=== PATIENT | female | born 1965 | race Caucasian/White ===

== ENCOUNTER 2024-08-19 20:30 | Observation (INO) | payer BC ==
--- NOTE | 2024-08-19 21:11 | ERPHSYRPT ---
- History of Present Illness Time Seen by Provider: 08/19/24 21:09 Source: patient Exam Limitations: no limitations Patient Subjective Stated Complaint: pt states that she began to have rt lower back pain this morning Triage Nursing Assessment: pt ambulated into the er; pt is axo x4; c/o back pain; pt states 8/10 pain to rt lower back; pt denies radiating pain; pt states pain has worsen over the day; no deformity or bruising present; good ROM to back; skin PDW; no respiratory distress present; hypertensive Physician History: The patient presents with acute right-sided lower back pain. The patient has acute right-sided lower back pain that began this morning. The pain is described as severe and is exacerbated by sitting, making it difficult for them to sit on the bed. The pain is localized to the right side of the lower back without radiation to the abdomen or groin. There is no history of back issues or recent injury. They have not experienced any numbness, tingling, or weakness in the right leg. No associated abdominal pain or changes in urination, such as burning, difficulty, or blood in the urine. They have no history of kidney stones. For pain relief, they took Aleve prior to the visit. Timing/Duration: today, worse Method of Injury: unknown Quality: sharp, stabbing Back Pain Location: paraspinous muscles Severity of Pain-Max: severe Severity of Pain-Current: severe Modifying Factors: Improves With: other (laying flat) Associated Symptoms: lower back pain, muscle spasms, No fever, No chills, No sweating, No urinary incontinence, No loss of bowel control, No nausea, No vomiting, No problems urinating, No numbness in legs/feet, No weakness, No sensory/motor loss, No tingling in legs/feet Previous symptoms: no prior history Allergies/Adverse Reactions: No Known Drug Allergies Allergy (Unverified 08/19/24 20:34) Hx Tetanus, Diphtheria Vaccination/Date Given: No Hx Influenza Vaccination/Date Given: No Hx Pneumococcal Vaccination/Date Given: No Travel Risk - International Travel Have you traveled outside of the country in past 3 weeks: No - Emerging Infectious Disease Are you exhibiting symptoms associated with any current EIDs: No - Review of Systems All Other Systems: Reviewed and Negative - Past Medical History Pertinent Past Medical History: No - Past Surgical History Past Surgical History: Yes Musculoskeletal: Orthopedic Surgery Female Surgical History: Section Other Surgical History: left shoulder - Social History Smoking Status: Never smoker Exposure to second hand smoke: No Drug Use: none - Social Determinants of Health Will the patient participate in the screening: Yes Do you worry about a steady place to live?: No Do you have any problems with any of the following?: No known problems In the past 12 months,have you had to go without utilities?: No Transportation Issues: No Has anyone in your support network made you feel unsafe?: No Have you or anyone in your house had to go without enough: No - Nursing Vital Signs Nursing Vital Signs: Initial Vital Signs Temperature 97.2 F 08/19/24 20:35 Pulse Rate 74 08/19/24 20:35 Respiratory Rate 20 08/19/24 20:35 Blood Pressure 190/95 08/19/24 20:35 O2 Sat by Pulse Oximetry 99 08/19/24 20:35 Pain Scale Pain Intensity [] 8 Pain Intensity 8 - Physical Exam General Appearance: no apparent distress Respiratory Exam: airway intact, No respiratory distress Gastrointestinal Exam: soft, No tenderness, No distention, No mass, No guarding, No rebound Back Exam: CVA tenderness (right), point tenderness (right paraspinal) Extremity Exam: normal inspection, normal range of motion, No tenderness Neurologic Exam: alert, oriented x 3, cooperative, drafter plumbing II-XII nml as tested, normal mood/affect, nml cerebellar function, nml station & gait Skin Exam: normal color, warm, dry, No rash SpO2 Interpretation: normal SpO2: 99 O2 Delivery: Room Air - Course Nursing assessment & vital signs reviewed: Yes - CT Exams Abdomen/Pelvis CT Interpretation: Tele-radiologist Report, appendicitis Ordered Tests: Active Orders 24 hr Category Date Time Status IV Insertion STAT Care 08/19/24 23:15 Ordered ABDOMEN AND PELVIS W/0 CONTRAS [CT] Stat Exams 08/19/24 21:13 Completed CBC W DIFF Stat Lab 08/19/24 21:41 Completed CMP Stat Lab 08/19/24 21:41 Completed CULTURE,URINE Stat Lab 08/19/24 21:24 Received Folate (Folic Acid) Stat Lab 08/19/24 21:53 Received UA W/RFX UR CULTURE Stat Lab 08/19/24 21:24 Completed Vitamin B12 Stat Lab 08/19/24 21:53 Received Medication Summary Generic Name Dose Route Start Last Admin Trade Name Charline PRN Reason Stop Dose Admin Piperacillin Sod/Tazobactam 100 mls @ 200 mls/hr 08/19/24 23:14 Sod 3.375 gm/ Sodium Chloride IV 08/19/24 23:43 STAT ONE Sodium Chloride 1,000 mls @ 125 mls/hr 08/19/24 23:30 Sodium Chloride 0.9% 1000 Ml IV 09/18/24 23:29 .Q8H YAHAIRA Discontinued Medications Generic Name Dose Route Start Last Admin Trade Name Charline PRN Reason Stop Dose Admin Acetaminophen 975 mg 08/19/24 21:11 08/19/24 21:16 Acetaminophen 325 Mg Tablet PO 08/19/24 21:12 975 mg STAT ONE Administration Acetaminophen Confirm 08/19/24 21:16 Acetaminophen 325 Mg Tablet Administered 08/19/24 21:17 Dose 975 mg .ROUTE .STK-MED ONE Cyclobenzaprine HCl 10 mg 08/19/24 21:11 08/19/24 21:16 Cyclobenzaprine Hcl 10 Mg Tablet PO 08/19/24 21:12 10 mg STAT ONE Administration Cyclobenzaprine HCl Confirm 08/19/24 21:15 Cyclobenzaprine Hcl 10 Mg Tablet Administered 08/19/24 21:16 Dose 10 mg .ROUTE .STK-MED ONE Ketorolac Tromethamine 30 mg 08/19/24 22:51 08/19/24 22:53 Ketorolac Tromethamine 30 Mg/Ml Inj IM 08/19/24 22:52 30 mg STAT ONE Administration Ketorolac Tromethamine Confirm 08/19/24 22:52 Ketorolac Tromethamine 30 Mg/Ml Inj Administered 08/19/24 22:53 Dose 30 mg .ROUTE .STK-MED ONE Nitrofurantoin Macrocrystals 100 mg 08/19/24 21:53 08/19/24 21:59 Nitrofurantoin Macro 100 Mg Capsule PO 08/19/24 21:54 100 mg STAT ONE Administration Nitrofurantoin Macrocrystals Confirm 08/19/24 21:58 Nitrofurantoin Macro 100 Mg Capsule Administered 08/19/24 21:59 Dose 100 mg .ROUTE .STK-MED ONE Tamsulosin HCl 0.4 mg 08/19/24 21:13 08/19/24 21:16 Tamsulosin Hcl 0.4 Mg Cap PO 08/19/24 21:14 0.4 mg STAT ONE Administration Tamsulosin HCl Confirm 08/19/24 21:15 Tamsulosin Hcl 0.4 Mg Cap Administered 08/19/24 21:16 Dose 0.4 mg .ROUTE .STK-MED ONE Lab/Rad Data: Laboratory Result Diagrams 08/19/24 21:41 08/19/24 21:41 Laboratory Results 08/19/24 08/19/24 08/19/24 Range/Units 21:53 21:41 21:41 WBC 9.5 (3.98-10.04) x10^3/uL RBC 4.07 (3.93-5.22) x10^6/uL Hgb 13.5 (11.2-15.7) g/dL Hct 41.2 (34.1-44.9) % MCV 101.2 H (79.4-94.8) fL MCH 33.2 H (25.6-32.2) pg MCHC 32.8 (32.2-35.5) g/dL RDW 13.2 (11.7-14.4) % Plt Count 170 L (182-369) x10^3/uL MPV 10.8 (9.4-12.3) fL Gran % 66.1 (34.0-71.1) % Immature Gran % (Auto) 0.2 (0.001-0.429) % Nucleat RBC Rel Count 0.0 (0.00-0.2) % Eos # (Auto) 0.47 H (0.04-0.36) x10^3/uL Immature Gran # (Auto) 0.02 (0.001-0.031) x10^3u/L Absolute Lymphs (auto) 2.17 (1.18-3.74) x10^3/uL Absolute Monos (auto) 0.53 (0.24-0.86) x10^3/uL Absolute Nucleated RBC 0.00 (0.00-0.012) x10^3u/L Lymphocytes % 22.8 (19.3-51.7) % Monocytes % 5.6 (4.7-12.5) % Eosinophils % 4.9 (0.7-5.8) % Basophils % 0.4 (0.1-1.2) % Absolute Granulocytes 6.28 H (1.56-6.13) x10^3/uL Basophils # 0.04 (0.01-0.08) x10^3/uL Sodium 137 (135-145) mmol/L Potassium 4.2 (3.5-5.1) mmol/L Chloride 101 (98-107) mmol/L Carbon Dioxide 30 (22-30) mmol/L Anion Gap 10.0 (5-15) MEQ/L BUN 25 H (7-17) mg/dL Creatinine 1.04 (0.52-1.04) mg/dL Estimated GFR 61.5 ML/MIN Glucose 92 (74-106) mg/dL Calcium 9.0 (8.4-10.2) mg/dL Total Bilirubin 0.40 (0.2-1.3) mg/dL AST 26 (14-36) U/L ALT 23 (0-35) U/L Alkaline Phosphatase 88 (38-126) U/L Serum Total Protein 7.6 (6.3-8.2) g/dL Albumin 4.4 (3.5-5.0) g/dL Vitamin B12 544 (239-931) pg/mL Folic Acid 7.81 (2.76 - >20) ng/mL Urine Color (Yellow) Urine Appearance (Clear) Urine pH (4.6-8.0) Ur Specific [place] (1.005-1.030) Urine Protein (Negative) Urine Glucose (UA) (Negative) mg/dL Urine Ketones (Negative) Urine Blood (Negative) Urine Nitrite (Negative) Urine Bilirubin (Negative) Urine Urobilinogen (0.2) mg/dL Ur Leukocyte Esterase (Negative) U Hyaline Cast (Auto) (0-2) /LPF Urine Microscopic RBC (0-5) /HPF Urine Microscopic WBC (0-5) /HPF Ur Epithelial Cells (None Seen) /HPF Urine Bacteria (None Seen) /HPF Urine Culture Reflexed (NO) 08/19/24 Range/Units 21:24 WBC (3.98-10.04) x10^3/uL RBC (3.93-5.22) x10^6/uL Hgb (11.2-15.7) g/dL Hct (34.1-44.9) % MCV (79.4-94.8) fL MCH (25.6-32.2) pg MCHC (32.2-35.5) g/dL RDW (11.7-14.4) % Plt Count (182-369) x10^3/uL MPV (9.4-12.3) fL Gran % (34.0-71.1) % Immature Gran % (Auto) (0.001-0.429) % Nucleat RBC Rel Count (0.00-0.2) % Eos # (Auto) (0.04-0.36) x10^3/uL Immature Gran # (Auto) (0.001-0.031) x10^3u/L Absolute Lymphs (auto) (1.18-3.74) x10^3/uL Absolute Monos (auto) (0.24-0.86) x10^3/uL Absolute Nucleated RBC (0.00-0.012) x10^3u/L Lymphocytes % (19.3-51.7) % Monocytes % (4.7-12.5) % Eosinophils % (0.7-5.8) % Basophils % (0.1-1.2) % Absolute Granulocytes (1.56-6.13) x10^3/uL Basophils # (0.01-0.08) x10^3/uL Sodium (135-145) mmol/L Potassium (3.5-5.1) mmol/L Chloride (98-107) mmol/L Carbon Dioxide (22-30) mmol/L Anion Gap (5-15) MEQ/L BUN (7-17) mg/dL Creatinine (0.52-1.04) mg/dL Estimated GFR ML/MIN Glucose (74-106) mg/dL Calcium (8.4-10.2) mg/dL Total Bilirubin (0.2-1.3) mg/dL AST (14-36) U/L ALT (0-35) U/L Alkaline Phosphatase (38-126) U/L Serum Total Protein (6.3-8.2) g/dL Albumin (3.5-5.0) g/dL Vitamin B12 (239-931) pg/mL Folic Acid (2.76 - >20) ng/mL Urine Color Yellow (Yellow) Urine Appearance Cloudy A (Clear) Urine pH 5.0 (4.6-8.0) Ur Specific [place] >=1.030 A (1.005-1.030) Urine Protein Negative (Negative) Urine Glucose (UA) Negative (Negative) mg/dL Urine Ketones Trace A (Negative) Urine Blood Negative (Negative) Urine Nitrite Negative (Negative) Urine Bilirubin Negative (Negative) Urine Urobilinogen 0.2 (0.2) mg/dL Ur Leukocyte Esterase Small A (Negative) U Hyaline Cast (Auto) NONE SEEN (0-2) /LPF Urine Microscopic RBC 3-5 (0-5) /HPF Urine Microscopic WBC 21-50 A (0-5) /HPF Ur Epithelial Cells Moderate A (None Seen) /HPF Urine Bacteria Many A (None Seen) /HPF Urine Culture Reflexed YES (NO) - Progress Progress: unchanged Progress Note: 08/19/24 21:11 Right-sided lower back pain Acute severe right-sided lower back pain with no prior back issues or recent injury. Absence of numbness, tingling, or weakness in the right leg. Pain does not radiate to the abdomen or groin. No urinary symptoms such as dysuria, difficulty, or hematuria. Differential diagnosis includes muscle spasm and nephrolithiasis. No red flag symptoms for back pain. Standing provides some relief. Imaging of the back is not indicated, but a CT scan of the abdomen is warranted to rule out nephrolithiasis. - Order CT scan of the abdomen to rule out nephrolithiasis - Prescribe analgesics for pain management 08/19/24 21:54 UA consistent with UTI, Macrobid prescribed. 08/19/24 23:09 CT abd/pelvis shows mildly dilated appendix at 9.3mm, minimal periappendiceal fat stranding and few tiny reactive lymph nodes, submucosal fat deposition noted within the appendix, possible early/subacute appendicitis. Will reach out to general surgery for recs. 08/19/24 23:[address] Armando Goodwin at [phone] who agrees to consult on patient and remove appendix tomorrow, he recommended Zosyn and asked if we could have the hospitalist admit the patient. 08/19/24 23:20 Dr. Ricardo accepts at 1120. Discussed with : Nino Counseled pt/family regarding: lab results, diagnosis, need for follow-up, rad results Medical Desision Making - Discussion of managment Care discussed with:: specialist Reviewed:: Test results Agreed on:: Treatment plan, place in obs Will see patient: in hospital - Diagnostic Testing Diagnostic test were ordered, analyzed, and reviewed by me: Yes Radiological Interpretation: Interpreted by me, Reviewed by me, Teleradiologist Report - Risk of complications The pt has a mod risk of morbidity or mortality based on: Need for prescription drug management The pt has a high risk of morbidity or mortality based on: Decision regarding hospitilization or escalation of hosp level of care - Departure Departure Disposition: Observation Clinical Impression: UTI (urinary tract infection), Low back pain, Appendicitis Condition: Good Critical Care Time: No Referrals: RAIN AZEVEDO, [employer] TECHNICIAN [Primary Care Provider] - Follow up/PCP as directed Instructions: Urinary tract infections in adults Prescriptions: Nitrofurantoin Macro 100 mg [Macrobid 100MG Capsule] 100 mg PO BID 5 Days #9 cap
[2024-08-19] MEDS ORDERED: Flomax 0.4 MG ONE (21:15)
[2024-08-19] MEDS ORDERED: Cyclobenzaprine 10 MG ONE (21:15)
[2024-08-19] MEDS: TYLENOL 325 MG PO ONE (21:16)
[2024-08-19] MEDS: Flomax 0.4 MG PO ONE (21:16)
[2024-08-19] MEDS ORDERED: TYLENOL 325 MG ONE (21:16)
[2024-08-19] MEDS: Cyclobenzaprine 10 MG PO ONE (21:16)
[2024-08-19 21:42] LABS: Absolute Neutrophil Ct (ANC) 6.28 x10^3/uL (1.56-6.13); BASOPHIL % 0.4 % (0.1-1.2); Basophil (Absolute #) 0.04 x10^3/uL (0.01-0.08); Eosinophil % 4.9 % (0.7-5.8); Eosinophil (Absolute #) 0.47 x10^3/uL (0.04-0.36); Hematocrit 41.2 % (34.1-44.9); Hemoglobin 13.5 g/dL (11.2-15.7); IMMATURE GRAN # 0.02 x10^3u/L (0.001-0.031); IMMATURE GRAN % 0.2 % (0.001-0.429); Lymphocyte (Absolute #) 2.17 x10^3/uL (1.18-3.74); Lymphocytes % 22.8 % (19.3-51.7); Mean Cell Volume 101.2 fL (79.4-94.8); Mean Corpuscular Hemoglobin 33.2 pg (25.6-32.2); Mean Corpuscular Hgb Concent. 32.8 g/dL (32.2-35.5); Mean Platelet Volume 10.8 fL (9.4-12.3); Monocyte (Absolute #) 0.53 x10^3/uL (0.24-0.86); Monocytes % 5.6 % (4.7-12.5); Neutrophil % 66.1 % (34.0-71.1); Platelet Count 170 x10^3/uL (182-369); Red Blood Count 4.07 x10^6/uL (3.93-5.22); Red Cell Distribution Width 13.2 % (11.7-14.4); White Blood Count 9.5 x10^3/uL (3.98-10.04)
[2024-08-19 21:50] LABS: Appearance Cloudy (Clear); Bacteria Many /HPF (None Seen); Bilirubin Negative (Negative); Blood Negative (Negative); Epithelial Cells Moderate /HPF (None Seen); Glucose, Urine Negative (Negative); Hyaline Casts NONE SEEN /LPF (0-2); Ketones Trace (Negative); Leukocyte Esterase Small (Negative); Nitrite Negative (Negative); Protein,Urine Dip Negative (Negative); Specific Gravity >=1.030 (1.005-1.030); Urobilinogen 0.2 mg/dL (0.2); WBC 21-50 /HPF (0-5)
[2024-08-19 21:58] LABS: ALBUMIN 4.4 g/dL (3.5-5.0); BILIRUBIN,TOTAL 0.4 mg/dL (0.2-1.3); Creatinine 1 1.04 mg/dL (0.52-1.04); EST GLOMERULAR FILTRATION RATE 61.5 ML/MIN; Potassium 4.2 mmol/L (3.5-5.1); Total Protein 7.6 g/dL (6.3-8.2)
[2024-08-19] MEDS ORDERED: Macrobid 100MG Capsule ONE (21:58)
[2024-08-19] MEDS: Macrobid 100MG Capsule PO ONE (21:59)
[2024-08-19] MEDS ORDERED: TORAdol 30 mg Injection ONE (22:52)
[2024-08-19] MEDS: TORAdol 30 mg Injection IM ONE (22:53)
--- NOTE | 2024-08-19 23:07 | XRAY ---
CLINICAL HISTORY: right flank pain COMPARISON: None. TECHNIQUE: Contiguous axial images were obtained from the level of the diaphragm to the pubic symphysis without intravenous or oral contrast. Coronal and sagittal reconstructions were likewise performed and indicated to increase the sensitivity for detecting clinically relevant pathology. CT scan was performed according to ALARA (as low as reasonably achievable). FINDINGS: Tiny calcified granuloma is noted in the left lower lobe. Rest of the lung parenchyma appear normal. Evaluation of the abdominal and pelvic visceral organs is limited without intravenous contrast. The unenhanced liver is grossly unremarkable. The gallbladder is present. The unenhanced spleen is grossly unremarkable. The unenhanced pancreas is grossly unremarkable. The adrenal glands are grossly unremarkable. The kidneys are normal in size. There is no hydronephrosis. No perinephric stranding is seen. The ureters are normal in caliber. No evidence of focal or diffuse bowel wall thickening or evidence of bowel obstruction is seen. Appendix appears mildly dilated measuring 9.3 mm in diameter. Minimal periappendiceal fat stranding is seen with few tiny reactive lymph nodes. Submucosal fat deposition is noted within the appendix. No pneumoperitoneum/ mehreen-appendiceal collection /wall thickening /perforation is noted. Po The urinary bladder is collapsed. No adenopathy or fluid collections are seen. Pelvic viscera are grossly unremarkable. The aorta is normal in caliber. No aggressive appearing osseous lesions are identified. IMPRESSION: 1. Appendix appears mildly dilated measuring 9.3 mm in diameter. Minimal periappendiceal fat stranding is seen with few tiny reactive lymph nodes. Submucosal fat deposition is noted within the appendix. Possibility of early or subacute appendicitis to be considered. 2. No pneumoperitoneum/ mehreen-appendiceal collection /wall thickening /perforation is noted. 3. No evidence of radiodense renal/ureteric calculi detected. Electronically Signed by: Juan Fair MD. (08/19/2024 23:01:31 EST)
[2024-08-19 23:13] LABS: Folate (Folic Acid) 7.81 ng/mL (2.76 - >20)
[2024-08-19] MEDS ORDERED: PIPERACILLIN/TAZOBACTAM IV ONE ×2 (23:18→23:19)
[2024-08-19] MEDS ORDERED: Sodium Chloride 100ML MINI-BAG PLUS 100 ML IV ONE (23:20)
[2024-08-19] MEDS: MORPHINE SULFATE 2 MG INJ IV ONE (23:24)
[2024-08-19] MEDS ORDERED: MORPHINE SULFATE 2 MG INJ ONE (23:24)
[2024-08-19] MEDS: PIPERACILLIN/TAZOBACTAM 3.375 GM in Sodium Chloride 100ML MINI-BAG PLUS 100 ML IV ONE (23:25)
[2024-08-19] MEDS: Sodium Chloride 0.9% 1000 ML 1,000 ML IV SCH (23:25)
--- NOTE | 2024-08-19 23:42 | PCM.HP ---
History of Present Illness - Chief Complaint Chief Complaint: back pain Date: 08/19/24 History of Present Illness: is a 59 year old female with no significant past medical history who presents with sudden onset today of right lower back pain, progressively wor sening throughout the day. Aching in general, with intermittent sharp squeezing pains lasting a few seconds. Relieved by standing, worsened by lying down. Denies associated fevers, nausea, diarrhea, or dysuria. Denies any abdominal pain. - Review of Systems All Other Systems: Reviewed and Negative Medications & Allergies Allergies/Adverse Reactions: Allergies Allergy/AdvReac Type Severity Reaction Status Date / Time No Known Drug Allergies Allergy Unverified 08/19/24 20:34 - Past Medical History Past Medical History: No - Past Surgical History Past Surgical History: Yes Musculskeletal Surgical Hx: Orthopedic Surgery Female Surgical History: Section Other Surgical History: left shoulder Significant Family History: cancer (father with colon cancer) - Social History Smoking Status: Never smoker Exposure to second hand smoke: No Alcohol: Rarely Drug Use: none - Social Determinants of Health Will the patient participate in the screening: Yes Do you worry about a steady place to live?: No Do you have any problems with any of the following?: No known problems In the past 12 months,have you had to go without utilities?: No Have you or anyone in your house had to go without enough: No Transportation Issues: No Has anyone in your support network made you feel unsafe?: No - Physical Exam Vital Signs: Vital Signs - 24 hr Temp Pulse Resp BP BP Pulse Ox 08/19/24 23:21 99 08/19/24 23:00 66 150/80 100 08/19/24 22:30 65 131/79 100 08/19/24 22:00 72 18 142/78 100 08/19/24 21:55 147/69 08/19/24 21:30 77 120/85 98 08/19/24 21:01 74 133/84 98 08/19/24 20:37 78 190/95 99 08/19/24 20:35 97.2 F 74 20 190/95 99 General Appearance: no apparent distress Neurologic Exam: alert, oriented x 3, cooperative, No motor deficits, No sensory deficit Eye Exam: eyes nml inspection, No scleral icterus Ears, Nose, Throat Exam: normal ENT inspection, moist mucous membranes Neck Exam: non-tender, supple Respiratory Exam: normal breath sounds, lungs clear, No respiratory distress Cardiovascular Exam: regular rate/rhythm, No murmur, No edema Gastrointestinal/Abdomen Exam: soft, normal bowel sounds, No tenderness, No distention Back Exam: normal range of motion, CVA tenderness Extremity Exam: normal range of motion, No joint swelling Skin Exam: normal color, dry, No rash Results - Labs Lab/Micro Results: Lab Results-Last 24 Hours 08/19/24 08/19/24 08/19/24 Range/Units 21:24 21:41 21:41 WBC 9.5 (3.98-10.04) x10^3/uL RBC 4.07 (3.93-5.22) x10^6/uL Hgb 13.5 (11.2-15.7) g/dL Hct 41.2 (34.1-44.9) % MCV 101.2 H (79.4-94.8) fL MCH 33.2 H (25.6-32.2) pg MCHC 32.8 (32.2-35.5) g/dL RDW 13.2 (11.7-14.4) % Plt Count 170 L (182-369) x10^3/uL MPV 10.8 (9.4-12.3) fL Gran % 66.1 (34.0-71.1) % Immature Gran % (Auto) 0.2 (0.001-0.429) % Nucleat RBC Rel Count 0.0 (0.00-0.2) % Eos # (Auto) 0.47 H (0.04-0.36) x10^3/uL Immature Gran # (Auto) 0.02 (0.001-0.031) x10^3u/L Absolute Lymphs (auto) 2.17 (1.18-3.74) x10^3/uL Absolute Monos (auto) 0.53 (0.24-0.86) x10^3/uL Absolute Nucleated RBC 0.00 (0.00-0.012) x10^3u/L Lymphocytes % 22.8 (19.3-51.7) % Monocytes % 5.6 (4.7-12.5) % Eosinophils % 4.9 (0.7-5.8) % Basophils % 0.4 (0.1-1.2) % Absolute Granulocytes 6.28 H (1.56-6.13) x10^3/uL Basophils # 0.04 (0.01-0.08) x10^3/uL Sodium 137 (135-145) mmol/L Potassium 4.2 (3.5-5.1) mmol/L Chloride 101 (98-107) mmol/L Carbon Dioxide 30 (22-30) mmol/L Anion Gap 10.0 (5-15) MEQ/L BUN 25 H (7-17) mg/dL Creatinine 1.04 (0.52-1.04) mg/dL Estimated GFR 61.5 ML/MIN Glucose 92 (74-106) mg/dL Calcium 9.0 (8.4-10.2) mg/dL Total Bilirubin 0.40 (0.2-1.3) mg/dL AST 26 (14-36) U/L ALT 23 (0-35) U/L Alkaline Phosphatase 88 (38-126) U/L Serum Total Protein 7.6 (6.3-8.2) g/dL Albumin 4.4 (3.5-5.0) g/dL Vitamin B12 (239-931) pg/mL Folic Acid (2.76 - >20) ng/mL Urine Color Yellow (Yellow) Urine Appearance Cloudy A (Clear) Urine pH 5.0 (4.6-8.0) Ur Specific [place] >=1.030 A (1.005-1.030) Urine Protein Negative (Negative) Urine Glucose (UA) Negative (Negative) mg/dL Urine Ketones Trace A (Negative) Urine Blood Negative (Negative) Urine Nitrite Negative (Negative) Urine Bilirubin Negative (Negative) Urine Urobilinogen 0.2 (0.2) mg/dL Ur Leukocyte Esterase Small A (Negative) U Hyaline Cast (Auto) NONE SEEN (0-2) /LPF Urine Microscopic RBC 3-5 (0-5) /HPF Urine Microscopic WBC 21-50 A (0-5) /HPF Ur Epithelial Cells Moderate A (None Seen) /HPF Urine Bacteria Many A (None Seen) /HPF Urine Culture Reflexed YES (NO) 08/19/24 Range/Units 21:53 WBC (3.98-10.04) x10^3/uL RBC (3.93-5.22) x10^6/uL Hgb (11.2-15.7) g/dL Hct (34.1-44.9) % MCV (79.4-94.8) fL MCH (25.6-32.2) pg MCHC (32.2-35.5) g/dL RDW (11.7-14.4) % Plt Count (182-369) x10^3/uL MPV (9.4-12.3) fL Gran % (34.0-71.1) % Immature Gran % (Auto) (0.001-0.429) % Nucleat RBC Rel Count (0.00-0.2) % Eos # (Auto) (0.04-0.36) x10^3/uL Immature Gran # (Auto) (0.001-0.031) x10^3u/L Absolute Lymphs (auto) (1.18-3.74) x10^3/uL Absolute Monos (auto) (0.24-0.86) x10^3/uL Absolute Nucleated RBC (0.00-0.012) x10^3u/L Lymphocytes % (19.3-51.7) % Monocytes % (4.7-12.5) % Eosinophils % (0.7-5.8) % Basophils % (0.1-1.2) % Absolute Granulocytes (1.56-6.13) x10^3/uL Basophils # (0.01-0.08) x10^3/uL Sodium (135-145) mmol/L Potassium (3.5-5.1) mmol/L Chloride (98-107) mmol/L Carbon Dioxide (22-30) mmol/L Anion Gap (5-15) MEQ/L BUN (7-17) mg/dL Creatinine (0.52-1.04) mg/dL Estimated GFR ML/MIN Glucose (74-106) mg/dL Calcium (8.4-10.2) mg/dL Total Bilirubin (0.2-1.3) mg/dL AST (14-36) U/L ALT (0-35) U/L Alkaline Phosphatase (38-126) U/L Serum Total Protein (6.3-8.2) g/dL Albumin (3.5-5.0) g/dL Vitamin B12 544 (239-931) pg/mL Folic Acid 7.81 (2.76 - >20) ng/mL Urine Color (Yellow) Urine Appearance (Clear) Urine pH (4.6-8.0) Ur Specific [place] (1.005-1.030) Urine Protein (Negative) Urine Glucose (UA) (Negative) mg/dL Urine Ketones (Negative) Urine Blood (Negative) Urine Nitrite (Negative) Urine Bilirubin (Negative) Urine Urobilinogen (0.2) mg/dL Ur Leukocyte Esterase (Negative) U Hyaline Cast (Auto) (0-2) /LPF Urine Microscopic RBC (0-5) /HPF Urine Microscopic WBC (0-5) /HPF Ur Epithelial Cells (None Seen) /HPF Urine Bacteria (None Seen) /HPF Urine Culture Reflexed (NO) - Radiology Impressions Radiology Exams & Impressions: Radiology Procedures Category Date Time Status ABDOMEN AND PELVIS W/0 CONTRAS [CT] Stat Exams 08/19/24 21:[address] Abd/pelvis - mildly dilated appendix with minimal fat stranding, tiny reactive lymph nodes, c/w early or subacute appendicits. Assessment/Plan (1) Appendicitis Current Visit: Yes Status: Acute Qualifiers: Appendicitis type: acute appendicitis Appendicitis gangrene presence: without gangrene Appendicitis perforation presence: without perforation Appendicitis abscess presence: without abscess Assessment & Plan: 59 y/o F with no significant past medical history who presents with back pain and found to have appendicitis. ## Appendicitis - somewhat atypical vs early presentation, presenting with back pain. However, has concomitant signs of early inflammation in her appendix, which would be consistent. Dr. Goodwin already consulted by ED, agrees with appendicitis diagnosis. - place in observation - NPO - start Zosyn - NS at 125 ml/hr - PRN Morphine, Zofran - Dr. Goodwin plans to take to OR tomorrow for appendectomy ## Pyuria - patient has pyuria on UA but no dysuria. Appendicitis can give pyuria on UA due to inflammatory cells around the appendix infiltrating the right ureter as it passes adjacent, giving a "false positive" dirty UA, as opposed to true acute cystitis. In either case, will be covered adequately by intra-abdominal antibiotics for appendicitis. - no need for specific UTI antibiotics Code status: Full code Prophylaxis: low risk (Leana score 2); encourage ambulation Diet: NPO Dispo: Place in observation; expect will be able to discharge to home after surgery Code(s): K37 - UNSPECIFIED APPENDICITIS Telemedicine Encounter - Telemedicine Encounter Telemedicine Encounter: "The entirety of this encounter was performed via Telemedicine" This visit was performed using real-time audio and video connection between my location and thepatients locationwith the assistance of a surrogateat the patients location. Written or verbal consent was obtained from the patient/guardian to perform this visit [facility] technology. Any patient questions regarding the telemedicine interaction were answered.
--- NOTE | 2024-08-20 05:08 | PCM.NOTE ---
Date and Time: 08/20/24 0503 Subjective Assessment: is a 59 year old female with no significant past medical history who presented to ED08/19/24 with sudden onset today of right lower back pain, progressively worsening throughout the day. Aching in general, with intermittent sharp squeezing pains lasting a few seconds. Relieved by standing, worsened by lying down. Denies associated fevers, nausea, diarrhea, or dysuria. Denies any abdominal pain. CT Abd/pelvis - mildly dilated appendix with minimal fat stranding, tiny reactive lymph nodes, c/w early or subacute appendicitis. Patient admitted with acute appendicitis and pyuria. Surgery consulted plan for intervention today. Objective Data Vital Signs: Vital Signs - 24 hr Temp Pulse Resp BP BP Pulse Ox 08/20/24 04:00 97.0 F 79 18 129/72 98 08/20/24 00:21 97.2 F 74 20 143/85 98 08/19/24 23:21 99 08/19/24 23:00 66 150/80 100 08/19/24 22:30 65 131/79 100 08/19/24 22:00 72 18 142/78 100 08/19/24 21:55 147/69 08/19/24 21:30 77 120/85 98 08/19/24 21:01 74 133/84 98 08/19/24 20:37 78 190/95 99 08/19/24 20:35 97.2 F 74 20 190/95 99 Pain Assessment - Last Documented Pain Intensity [Right Lower 8 Back] Pain Intensity 0 Pain Scale Used 0-10 Pain Scale Intake and Output: Intake & Output 08/17/24 08/18/24 08/19/24 08/20/24 11:59 11:59 11:59 11:59 Intake Total 541 Balance 541 Weight 88.7 kg Lab Results: Lab Results-Last 24 Hours 08/19/24 08/19/24 08/19/24 Range/Units 21:24 21:41 21:41 WBC 9.5 (3.98-10.04) x10^3/uL RBC 4.07 (3.93-5.22) x10^6/uL Hgb 13.5 (11.2-15.7) g/dL Hct 41.2 (34.1-44.9) % MCV 101.2 H (79.4-94.8) fL MCH 33.2 H (25.6-32.2) pg MCHC 32.8 (32.2-35.5) g/dL RDW 13.2 (11.7-14.4) % Plt Count 170 L (182-369) x10^3/uL MPV 10.8 (9.4-12.3) fL Gran % 66.1 (34.0-71.1) % Immature Gran % (Auto) 0.2 (0.001-0.429) % Nucleat RBC Rel Count 0.0 (0.00-0.2) % Eos # (Auto) 0.47 H (0.04-0.36) x10^3/uL Immature Gran # (Auto) 0.02 (0.001-0.031) x10^3u/L Absolute Lymphs (auto) 2.17 (1.18-3.74) x10^3/uL Absolute Monos (auto) 0.53 (0.24-0.86) x10^3/uL Absolute Nucleated RBC 0.00 (0.00-0.012) x10^3u/L Lymphocytes % 22.8 (19.3-51.7) % Monocytes % 5.6 (4.7-12.5) % Eosinophils % 4.9 (0.7-5.8) % Basophils % 0.4 (0.1-1.2) % Absolute Granulocytes 6.28 H (1.56-6.13) x10^3/uL Basophils # 0.04 (0.01-0.08) x10^3/uL Sodium 137 (135-145) mmol/L Potassium 4.2 (3.5-5.1) mmol/L Chloride 101 (98-107) mmol/L Carbon Dioxide 30 (22-30) mmol/L Anion Gap 10.0 (5-15) MEQ/L BUN 25 H (7-17) mg/dL Creatinine 1.04 (0.52-1.04) mg/dL Estimated GFR 61.5 ML/MIN Glucose 92 (74-106) mg/dL Calcium 9.0 (8.4-10.2) mg/dL Total Bilirubin 0.40 (0.2-1.3) mg/dL AST 26 (14-36) U/L ALT 23 (0-35) U/L Alkaline Phosphatase 88 (38-126) U/L Serum Total Protein 7.6 (6.3-8.2) g/dL Albumin 4.4 (3.5-5.0) g/dL Vitamin B12 (239-931) pg/mL Folic Acid (2.76 - >20) ng/mL Urine Color Yellow (Yellow) Urine Appearance Cloudy A (Clear) Urine pH 5.0 (4.6-8.0) Ur Specific [place] >=1.030 A (1.005-1.030) Urine Protein Negative (Negative) Urine Glucose (UA) Negative (Negative) mg/dL Urine Ketones Trace A (Negative) Urine Blood Negative (Negative) Urine Nitrite Negative (Negative) Urine Bilirubin Negative (Negative) Urine Urobilinogen 0.2 (0.2) mg/dL Ur Leukocyte Esterase Small A (Negative) U Hyaline Cast (Auto) NONE SEEN (0-2) /LPF Urine Microscopic RBC 3-5 (0-5) /HPF Urine Microscopic WBC 21-50 A (0-5) /HPF Ur Epithelial Cells Moderate A (None Seen) /HPF Urine Bacteria Many A (None Seen) /HPF Urine Culture Reflexed YES (NO) 08/19/24 Range/Units 21:53 WBC (3.98-10.04) x10^3/uL RBC (3.93-5.22) x10^6/uL Hgb (11.2-15.7) g/dL Hct (34.1-44.9) % MCV (79.4-94.8) fL MCH (25.6-32.2) pg MCHC (32.2-35.5) g/dL RDW (11.7-14.4) % Plt Count (182-369) x10^3/uL MPV (9.4-12.3) fL Gran % (34.0-71.1) % Immature Gran % (Auto) (0.001-0.429) % Nucleat RBC Rel Count (0.00-0.2) % Eos # (Auto) (0.04-0.36) x10^3/uL Immature Gran # (Auto) (0.001-0.031) x10^3u/L Absolute Lymphs (auto) (1.18-3.74) x10^3/uL Absolute Monos (auto) (0.24-0.86) x10^3/uL Absolute Nucleated RBC (0.00-0.012) x10^3u/L Lymphocytes % (19.3-51.7) % Monocytes % (4.7-12.5) % Eosinophils % (0.7-5.8) % Basophils % (0.1-1.2) % Absolute Granulocytes (1.56-6.13) x10^3/uL Basophils # (0.01-0.08) x10^3/uL Sodium (135-145) mmol/L Potassium (3.5-5.1) mmol/L Chloride (98-107) mmol/L Carbon Dioxide (22-30) mmol/L Anion Gap (5-15) MEQ/L BUN (7-17) mg/dL Creatinine (0.52-1.04) mg/dL Estimated GFR ML/MIN Glucose (74-106) mg/dL Calcium (8.4-10.2) mg/dL Total Bilirubin (0.2-1.3) mg/dL AST (14-36) U/L ALT (0-35) U/L Alkaline Phosphatase (38-126) U/L Serum Total Protein (6.3-8.2) g/dL Albumin (3.5-5.0) g/dL Vitamin B12 544 (239-931) pg/mL Folic Acid 7.81 (2.76 - >20) ng/mL Urine Color (Yellow) Urine Appearance (Clear) Urine pH (4.6-8.0) Ur Specific [place] (1.005-1.030) Urine Protein (Negative) Urine Glucose (UA) (Negative) mg/dL Urine Ketones (Negative) Urine Blood (Negative) Urine Nitrite (Negative) Urine Bilirubin (Negative) Urine Urobilinogen (0.2) mg/dL Ur Leukocyte Esterase (Negative) U Hyaline Cast (Auto) (0-2) /LPF Urine Microscopic RBC (0-5) /HPF Urine Microscopic WBC (0-5) /HPF Ur Epithelial Cells (None Seen) /HPF Urine Bacteria (None Seen) /HPF Urine Culture Reflexed (NO) Radiology Exams: Radiology Procedures Category Date Time Status ABDOMEN AND PELVIS W/0 CONTRAS [CT] Stat Exams 08/19/24 21:13 Completed Assessment/Plan (1) Appendicitis Current Visit: Yes Status: Acute Qualifiers: Appendicitis type: acute appendicitis Appendicitis gangrene presence: without gangrene Appendicitis perforation presence: without perforation Appendicitis abscess presence: without abscess Assessment & Plan: -IVF -Zosyn -Pain control -Surgery consulted, plans for intervention today -CBC reviewed Code(s): K37 - UNSPECIFIED APPENDICITIS (2) Low back pain Current Visit: Yes Status: Acute Assessment & Plan: -? secondary to UTI vs appendicitis -pain control -zosyn -appendectomy today Code(s): M54.50 - LOW BACK PAIN, UNSPECIFIED (3) UTI (urinary tract infection) Current Visit: Yes Status: Acute Assessment & Plan: -UA with pyuria - started on Zosyn- follow culture VTE :SCD Diet: NPO Disp: ?after surgery Code(s): N39.0 - URINARY TRACT INFECTION, SITE NOT SPECIFIED
[2024-08-20 05:37] LABS: Absolute Neutrophil Ct (ANC) 3.28 x10^3/uL (1.56-6.13); BASOPHIL % 0.2 % (0.1-1.2); Basophil (Absolute #) 0.01 x10^3/uL (0.01-0.08); Eosinophil % 5.3 % (0.7-5.8); Eosinophil (Absolute #) 0.32 x10^3/uL (0.04-0.36); Hematocrit 37.7 % (34.1-44.9); Hemoglobin 12.6 g/dL (11.2-15.7); IMMATURE GRAN # 0.02 x10^3u/L (0.001-0.031); IMMATURE GRAN % 0.3 % (0.001-0.429); Lymphocyte (Absolute #) 2.04 x10^3/uL (1.18-3.74); Mean Cell Volume 100.8 fL (79.4-94.8); Mean Corpuscular Hemoglobin 33.7 pg (25.6-32.2); Mean Corpuscular Hgb Concent. 33.4 g/dL (32.2-35.5); Mean Platelet Volume 10.7 fL (9.4-12.3); Monocyte (Absolute #) 0.33 x10^3/uL (0.24-0.86); Monocytes % 5.5 % (4.7-12.5); Neutrophil % 54.7 % (34.0-71.1); Platelet Count 122 x10^3/uL (182-369); Red Blood Count 3.74 x10^6/uL (3.93-5.22); Red Cell Distribution Width 13.1 % (11.7-14.4)
[2024-08-20] MEDS ORDERED: Sodium Chloride 100ML MINI-BAG PLUS 100 ML IV ONE (06:05)
[2024-08-20] MEDS ORDERED: PIPERACILLIN/TAZOBACTAM IV ONE (06:05)
[2024-08-20 06:07] LABS: ALBUMIN 3.7 g/dL (3.5-5.0); ANION GAP 8.3 MEQ/L (5-15); BILIRUBIN,TOTAL 0.5 mg/dL (0.2-1.3); Calcium 8.6 mg/dL (8.4-10.2); Creatinine 1 0.93 mg/dL (0.52-1.04); EST GLOMERULAR FILTRATION RATE 70.4 ML/MIN; Potassium 4.3 mmol/L (3.5-5.1); Total Protein 6.4 g/dL (6.3-8.2)
[2024-08-20] MEDS: PIPERACILLIN/TAZOBACTAM 3.375 GM in Sodium Chloride 100ML MINI-BAG PLUS 100 ML IV SCH (06:10)
[2024-08-20] MEDS: MORPHINE SULFATE 2 MG INJ IV PRN (06:11)
[2024-08-20] MEDS: CEFOXITIN 2 GM/100 ML NACL IVPB 2 GM/100 ML IVPB IV SCH (09:27)
[2024-08-20] MEDS ORDERED: propofoL IV ONE (09:52)
[2024-08-20] MEDS ORDERED: Versed 2 MG/2 ML Injection ONE (09:52)
[2024-08-20] MEDS ORDERED: ROCURONIUM BROMIDE IV ONE (09:52)
[2024-08-20] MEDS ORDERED: Quelicin Fliptop 200 MG/10 ML ONE (09:52)
[2024-08-20] MEDS ORDERED: SUBLIMAZE 100 MCG/2 ML ONE ×2 (09:52→10:44)
--- NOTE | 2024-08-20 10:06 | PCM.CONS ---
History of Present Illness - Reason for Consult Chief Complaint: back pain Requesting Provider: ALEA QUEEN MD Consulting Provider: RAJNI VERGARA MD History of Present Illness: is a 59 year old female. pmh listed. previously healthy. has had rotator cuff before. no abdominal surgeries. up to date c scope 2023 OK. recall 5 years for fam hx father colon ca. was doing fine a couple days ago. 111 am with some vague abdominal pain. then worse radiating to back severe sharp. to ed workup with dilated 9mm appy with periappy stranding. overnight still with pain but pretty controlled on medicine. no n/v. + flatus. + bm yesterday. no other c/o. "- History of Present Illness Time Seen by Provider: 08/19/24 21:09 Source: patient Exam Limitations: no limitations Patient Subjective Stated Complaint: pt states that she began to have rt lower back pain this morning Triage Nursing Assessment: pt ambulated into the er; pt is axo x4; c/o back pain; pt states 8/10 pain to rt lower back; pt denies radiating pain; pt states pain has worsen over the day; no deformity or bruising present; good ROM to back; skin PDW; no respiratory distress present; hypertensive Physician History: The patient presents with acute right-sided lower back pain. The patient has acute right-sided lower back pain that began this morning. The pain is described as severe and is exacerbated by sitting, making it difficult for them to sit on the bed. The pain is localized to the right side of the lower back without radiation to the abdomen or groin. There is no history of back issues or recent injury. They have not experienced any numbness, tingling, or weakness in the right leg. No associated abdominal pain or changes in urination, such as burning, difficulty, or blood in the urine. They have no history of kidney stones. For pain relief, they took Aleve prior to the visit. Timing/Duration: today, worse Method of Injury: unknown Quality: sharp, stabbing Back Pain Location: paraspinous muscles Severity of Pain-Max: severe Severity of Pain-Current: severe Modifying Factors: Improves With: other (laying flat) Associated Symptoms: lower back pain, muscle spasms, No fever, No chills, No sweating, No urinary incontinence, No loss of bowel control, No nausea, No vomiting, No problems urinating, No numbness in legs/feet, No weakness, No sensory/motor loss, No tingling in legs/feet Previous symptoms: no prior history Allergies/Adverse Reactions: No Known Drug Allergies Allergy (Unverified 08/19/24 20:34) Hx Tetanus, Diphtheria Vaccination/Date Given: No Hx Influenza Vaccination/Date Given: No Hx Pneumococcal Vaccination/Date Given: No Travel Risk - International Travel Have you traveled outside of the country in past 3 weeks: No - Emerging Infectious Disease Are you exhibiting symptoms associated with any current EIDs: No - Review of Systems All Other Systems: Reviewed and Negative - Past Medical History Pertinent Past Medical History: No - Past Surgical History Past Surgical History: Yes Musculoskeletal: Orthopedic Surgery Female Surgical History: Section Other Surgical History: left shoulder - Social History Smoking Status: Never smoker Exposure to second hand smoke: No Drug Use: none - Social Determinants of Health Will the patient participate in the screening: Yes Do you worry about a steady place to live?: No Do you have any problems with any of the following?: No known problems In the past 12 months,have you had to go without utilities?: No Transportation Issues: No Has anyone in your support network made you feel unsafe?: No Have you or anyone in your house had to go without enough: No " Medications & Allergies Home Medications: Home Medication List No Reportable Medications [No Reported Medications] 08/20/24 [History Confirmed 08/20/24] Allergies/Adverse Reactions: Allergies Allergy/AdvReac Type Severity Reaction Status Date / Time No Known Drug Allergies Allergy Unverified 08/19/24 20:34 - Past Medical History Past Medical History: No Neurological History: No Pertinent History ENT History: No Pertinent History Cardiac History: No Pertinent History Respiratory History: No Pertinent History Endocrine Medical History: No Pertinent History Musculoskelatal History: No Pertinent History GI Medical History: No Pertinent History History: No Pertinent History Pyscho-Social History: No Pertinent History Reproductive Disorders: No Pertinent History - Past Surgical History Past Surgical History: Yes Neuro Surgical History: No Pertinent History Cardiac History: No Pertinent History Respiratory Surgery: No Pertinent History GI Surgical History: No Pertinent History Musculskeletal Surgical Hx: Orthopedic Surgery Female Surgical History: Section Other Surgical History: left shoulder Significant Family History: cancer (father with colon cancer) - Social History Smoking Status: Never smoker Exposure to second hand smoke: No Alcohol: Rarely Drug Use: none - Social Determinants of Health Will the patient participate in the screening: Yes Do you worry about a steady place to live?: No Do you have any problems with any of the following?: No known problems In the past 12 months,have you had to go without utilities?: No Have you or anyone in your house had to go without enough: No Transportation Issues: No Has anyone in your support network made you feel unsafe?: No Does the patient want assistance with any of the above?: No - Physical Exam Vital Signs: Vital Signs - 24 hr Temp Pulse Resp BP BP Pulse Ox 08/20/24 09:32 72 18 134/72 98 08/20/24 08:00 72 18 134/72 98 08/20/24 04:00 97.0 F 79 18 129/72 98 08/20/24 00:21 97.2 F 74 20 143/85 98 08/19/24 23:21 99 08/19/24 23:00 66 150/80 100 08/19/24 22:30 65 131/79 100 08/19/24 22:00 72 18 142/78 100 08/19/24 21:55 147/69 08/19/24 21:30 77 120/85 98 08/19/24 21:01 74 133/84 98 08/19/24 20:37 78 190/95 99 08/19/24 20:35 97.2 F 74 20 190/95 99 Additional Findings: 08/20/24 10:04 nad no scleral icterus neck symmetric nonlabored resps rrr nd, soft, ttp rlq no r/g. no edema gcs 15 warm dry Results - Labs Lab/Micro Results: Lab Results-Last 24 Hours 08/19/24 08/19/24 08/19/24 Range/Units 21:24 21:41 21:41 WBC 9.5 (3.98-10.04) x10^3/uL RBC 4.07 (3.93-5.22) x10^6/uL Hgb 13.5 (11.2-15.7) g/dL Hct 41.2 (34.1-44.9) % MCV 101.2 H (79.4-94.8) fL MCH 33.2 H (25.6-32.2) pg MCHC 32.8 (32.2-35.5) g/dL RDW 13.2 (11.7-14.4) % Plt Count 170 L (182-369) x10^3/uL MPV 10.8 (9.4-12.3) fL Gran % 66.1 (34.0-71.1) % Immature Gran % (Auto) 0.2 (0.001-0.429) % Nucleat RBC Rel Count 0.0 (0.00-0.2) % Eos # (Auto) 0.47 H (0.04-0.36) x10^3/uL Immature Gran # (Auto) 0.02 (0.001-0.031) x10^3u/L Absolute Lymphs (auto) 2.17 (1.18-3.74) x10^3/uL Absolute Monos (auto) 0.53 (0.24-0.86) x10^3/uL Absolute Nucleated RBC 0.00 (0.00-0.012) x10^3u/L Lymphocytes % 22.8 (19.3-51.7) % Monocytes % 5.6 (4.7-12.5) % Eosinophils % 4.9 (0.7-5.8) % Basophils % 0.4 (0.1-1.2) % Absolute Granulocytes 6.28 H (1.56-6.13) x10^3/uL Basophils # 0.04 (0.01-0.08) x10^3/uL Sodium 137 (135-145) mmol/L Potassium 4.2 (3.5-5.1) mmol/L Chloride 101 (98-107) mmol/L Carbon Dioxide 30 (22-30) mmol/L Anion Gap 10.0 (5-15) MEQ/L BUN 25 H (7-17) mg/dL Creatinine 1.04 (0.52-1.04) mg/dL Estimated GFR 61.5 ML/MIN Glucose 92 (74-106) mg/dL Calcium 9.0 (8.4-10.2) mg/dL Total Bilirubin 0.40 (0.2-1.3) mg/dL AST 26 (14-36) U/L ALT 23 (0-35) U/L Alkaline Phosphatase 88 (38-126) U/L Serum Total Protein 7.6 (6.3-8.2) g/dL Albumin 4.4 (3.5-5.0) g/dL Vitamin B12 (239-931) pg/mL Folic Acid (2.76 - >20) ng/mL Urine Color Yellow (Yellow) Urine Appearance Cloudy A (Clear) Urine pH 5.0 (4.6-8.0) Ur Specific [place] >=1.030 A (1.005-1.030) Urine Protein Negative (Negative) Urine Glucose (UA) Negative (Negative) mg/dL Urine Ketones Trace A (Negative) Urine Blood Negative (Negative) Urine Nitrite Negative (Negative) Urine Bilirubin Negative (Negative) Urine Urobilinogen 0.2 (0.2) mg/dL Ur Leukocyte Esterase Small A (Negative) U Hyaline Cast (Auto) NONE SEEN (0-2) /LPF Urine Microscopic RBC 3-5 (0-5) /HPF Urine Microscopic WBC 21-50 A (0-5) /HPF Ur Epithelial Cells Moderate A (None Seen) /HPF Urine Bacteria Many A (None Seen) /HPF Urine Culture Reflexed YES (NO) 08/19/24 08/20/24 08/20/24 Range/Units 21:53 05:22 05:22 WBC 6.0 (3.98-10.04) x10^3/uL RBC 3.74 L (3.93-5.22) x10^6/uL Hgb 12.6 (11.2-15.7) g/dL Hct 37.7 (34.1-44.9) % MCV 100.8 H (79.4-94.8) fL MCH 33.7 H (25.6-32.2) pg MCHC 33.4 (32.2-35.5) g/dL RDW 13.1 (11.7-14.4) % Plt Count 122 L (182-369) x10^3/uL MPV 10.7 (9.4-12.3) fL Gran % 54.7 (34.0-71.1) % Immature Gran % (Auto) 0.3 (0.001-0.429) % Nucleat RBC Rel Count 0.0 (0.00-0.2) % Eos # (Auto) 0.32 (0.04-0.36) x10^3/uL Immature Gran # (Auto) 0.02 (0.001-0.031) x10^3u/L Absolute Lymphs (auto) 2.04 (1.18-3.74) x10^3/uL Absolute Monos (auto) 0.33 (0.24-0.86) x10^3/uL Absolute Nucleated RBC 0.00 (0.00-0.012) x10^3u/L Lymphocytes % 34.0 (19.3-51.7) % Monocytes % 5.5 (4.7-12.5) % Eosinophils % 5.3 (0.7-5.8) % Basophils % 0.2 (0.1-1.2) % Absolute Granulocytes 3.28 (1.56-6.13) x10^3/uL Basophils # 0.01 (0.01-0.08) x10^3/uL Sodium 140 (135-145) mmol/L Potassium 4.3 (3.5-5.1) mmol/L Chloride 107 (98-107) mmol/L Carbon Dioxide 29 (22-30) mmol/L Anion Gap 8.3 (5-15) MEQ/L BUN 21 H (7-17) mg/dL Creatinine 0.93 (0.52-1.04) mg/dL Estimated GFR 70.4 ML/MIN Glucose 97 (74-106) mg/dL Calcium 8.6 (8.4-10.2) mg/dL Total Bilirubin 0.50 (0.2-1.3) mg/dL AST 23 (14-36) U/L ALT 20 (0-35) U/L Alkaline Phosphatase 67 (38-126) U/L Serum Total Protein 6.4 (6.3-8.2) g/dL Albumin 3.7 (3.5-5.0) g/dL Vitamin B12 544 (239-931) pg/mL Folic Acid 7.81 (2.76 - >20) ng/mL Urine Color (Yellow) Urine Appearance (Clear) Urine pH (4.6-8.0) Ur Specific [place] (1.005-1.030) Urine Protein (Negative) Urine Glucose (UA) (Negative) mg/dL Urine Ketones (Negative) Urine Blood (Negative) Urine Nitrite (Negative) Urine Bilirubin (Negative) Urine Urobilinogen (0.2) mg/dL Ur Leukocyte Esterase (Negative) U Hyaline Cast (Auto) (0-2) /LPF Urine Microscopic RBC (0-5) /HPF Urine Microscopic WBC (0-5) /HPF Ur Epithelial Cells (None Seen) /HPF Urine Bacteria (None Seen) /HPF Urine Culture Reflexed (NO) - Radiology Impressions Radiology Exams & Impressions: Radiology Procedures Category Date Time Status ABDOMEN AND PELVIS W/0 CONTRAS [CT] Stat Exams 08/19/24 21:13 Completed Assessment/Plan (1) Appendicitis Current Visit: Yes Status: Acute Qualifiers: Appendicitis type: acute appendicitis Appendicitis gangrene presence: without gangrene Appendicitis perforation presence: without perforation Appendicitis abscess presence: without abscess Assessment & Plan: 59yo with acute ct confirmed appendicitis. <1 day pain. tender rlq without peritonitis. ct with 9mm appy with stranding. discussed OR vs nonop management she wants to continue with appendectomy. -lap appy Code(s): K37 - UNSPECIFIED APPENDICITIS
[2024-08-20] MEDS ORDERED: Sensorcaine 0.25% 10 ML ONE (10:07)
[2024-08-20] MEDS ORDERED: Sodium Chloride 0.9% 1000 ML 1,000 ML ONE (10:07)
[2024-08-20] MEDS ORDERED: TORAdol 30 mg Injection ONE (10:53)
[2024-08-20] MEDS ORDERED: BRIDION 200MG/2ML IV ONE (10:53)
[2024-08-20] MEDS ORDERED: Zofran 4 MG/2 ML VIAL ONE (10:53)
--- NOTE | 2024-08-20 11:04 | PCM.NOTE ---
uneventful nonperforated lap appy. ok to dc when aníbal liquids, pain tolerable, ambulating/ -norco augmentin rx sent. -fu 2 weeks in office
[2024-08-20] MEDS: Zofran 4 MG/2 ML VIAL IV PRN (12:34)
[2024-08-20 13:01] VITALS: RESP 17
[2024-08-20 13:29] VITALS: BP 138/63; PULSE 65; TEMP 97.4; O2SAT 97
--- NOTE | 2024-08-20 14:05 | PCM.DS ---
Discharge Summary Date of Admission: 08/20/24 00:06 Date of Discharge: 08/20/24 Admitting Physician: ALEA QUEEN MD Primary Care Provider: RAIN AZEVEDO Allergies Allergies No Known Drug Allergies Allergy (Unverified 08/19/24 20:34) Hospital Summary - Hospital Course Hospital Course: is a 59 year old female with no significant past medical history who presented to ED08/19/24 with sudden onset today of right lower back pain, progressively worsening throughout the day. Aching in general, with intermittent sharp squeezing pains lasting a few seconds. Relieved by standing, worsened by lying down. Denies associated fevers, nausea, diarrhea, or dysuria. Denies any abdominal pain. CT Abd/pelvis - mildly dilated appendix with minimal fat s tranding, tiny reactive lymph nodes, c/w early or subacute appendicitis. Patient admitted with acute appendicitis and pyuria. Surgery consulted -uneventful lap appendectomy performed. Cleared for discharge by surgery when when aníbal liquids, pain tolerable, ambulating/ -norco augmentin rx sent. -fu 2 weeks with surgery. UTI with culture pending. Augmentin sent. Patient to follow up PCP for resolutio n. Will contact patient if abx need changed once culture results are back. Discharge Note New Diagnosis: UTI/Acute appendicitis New Medications: Augmentin/ [place] Follow Up: PCP/Surgery Latest Assessment & Plan (1) Appendicitis Current Visit: Yes Status: Acute Qualifiers: Appendicitis type: acute appendicitis Appendicitis gangrene presence: wi thout gangrene Appendicitis perforation presence: without perforation Appendicitis abscess presence: without abscess Assessment & Plan: -IVF -Zosyn -Pain control -Surgery consulted, plans for intervention today -CBC reviewed Code(s): K37 - UNSPECIFIED APPENDICITIS (2) Low back pain Current Visit: Yes Status: Acute Assessment & Plan: -? secondary to UTI vs appendicitis -pain control -zosyn -appendectomy today Code(s): M54.50 - LOW BACK PAIN, UNSPECIFIED (3) UTI (urinary tract infection) Current Visit: Yes Status: Acute Assessment & Plan: -UA with pyuria - started on Zosyn- follow culture I spent 35 minutes [id number] with the patient on the day of discharge pe rforming discharge exam, discussing hospital stay and discharge instructions with patient and caregivers, preparation of discharge records, prescriptions & referral forms and addressing any questions/concerns the patient had as documented above. - Vitals & Intake/Output Vital Signs: Vital Signs Temperature 97.4 F 08/20/24 13:25 Pulse Rate 65 08/20/24 13:25 Respiratory Rate 17 08/20/24 13:25 Blood Pressure 138/63 08/20/24 13:25 O2 Sat by Pulse Oximetry 97 08/20/24 13:25 Intake & Output: Intake & Output 08/18/24 08/19/24 08/20/24 08/21/24 11:59 11:59 11:59 11:59 Intake Total 541 120 Balance 541 120 Weight 88.7 kg - Lab Result Diagrams: 08/20/24 05:22 08/20/24 05:22 Lab Results-Last 24 Hrs: Lab Results-Last 24 Hours 08/19/24 08/19/24 08/19/24 Range/Units 21:24 21:41 21:41 WBC 9.5 (3.98-10.04) x10^3/uL RBC 4.07 (3.93-5.22) x10^6/uL Hgb 13.5 (11.2-15.7) g/dL Hct 41.2 (34.1-44.9) % MCV 101.2 H (79.4-94.8) fL MCH 33.2 H (25.6-32.2) pg MCHC 32.8 (32.2-35.5) g/dL RDW 13.2 (11.7-14.4) % Plt Count 170 L (182-369) x10^3/uL MPV 10.8 (9.4-12.3) fL Gran % 66.1 (34.0-71.1) % Immature Gran % (Auto) 0.2 (0.001-0.429) % Nucleat RBC Rel Count 0.0 (0.00-0.2) % Eos # (Auto) 0.47 H (0.04-0.36) x10^3/uL Immature Gran # (Auto) 0.02 (0.001-0.031) x10^3u/L Absolute Lymphs (auto) 2.17 (1.18-3.74) x10^3/uL Absolute Monos (auto) 0.53 (0.24-0.86) x10^3/uL Absolute Nucleated RBC 0.00 (0.00-0.012) x10^3u/L Lymphocytes % 22.8 (19.3-51.7) % Monocytes % 5.6 (4.7-12.5) % Eosinophils % 4.9 (0.7-5.8) % Basophils % 0.4 (0.1-1.2) % Absolute Granulocytes 6.28 H (1.56-6.13) x10^3/uL Basophils # 0.04 (0.01-0.08) x10^3/uL Sodium 137 (135-145) mmol/L Potassium 4.2 (3.5-5.1) mmol/L Chloride 101 (98-107) mmol/L Carbon Dioxide 30 (22-30) mmol/L Anion Gap 10.0 (5-15) MEQ/L BUN 25 H (7-17) mg/dL Creatinine 1.04 (0.52-1.04) mg/dL Estimated GFR 61.5 ML/MIN Glucose 92 (74-106) mg/dL Calcium 9.0 (8.4-10.2) mg/dL Total Bilirubin 0.40 (0.2-1.3) mg/dL AST 26 (14-36) U/L ALT 23 (0-35) U/L Alkaline Phosphatase 88 (38-126) U/L Serum Total Protein 7.6 (6.3-8.2) g/dL Albumin 4.4 (3.5-5.0) g/dL Vitamin B12 (239-931) pg/mL Folic Acid (2.76 - >20) ng/mL Urine Color Yellow (Yellow) Urine Appearance Cloudy A (Clear) Urine pH 5.0 (4.6-8.0) Ur Specific [place] >=1.030 A (1.005-1.030) Urine Protein Negative (Negative) Urine Glucose (UA) Negative (Negative) mg/dL Urine Ketones Trace A (Negative) Urine Blood Negative (Negative) Urine Nitrite Negative (Negative) Urine Bilirubin Negative (Negative) Urine Urobilinogen 0.2 (0.2) mg/dL Ur Leukocyte Esterase Small A (Negative) U Hyaline Cast (Auto) NONE SEEN (0-2) /LPF Urine Microscopic RBC 3-5 (0-5) /HPF Urine Microscopic WBC 21-50 A (0-5) /HPF Ur Epithelial Cells Moderate A (None Seen) /HPF Urine Bacteria Many A (None Seen) /HPF Urine Culture Reflexed YES (NO) 08/19/24 08/20/24 08/20/24 Range/Units 21:53 05:22 05:22 WBC 6.0 (3.98-10.04) x10^3/uL RBC 3.74 L (3.93-5.22) x10^6/uL Hgb 12.6 (11.2-15.7) g/dL Hct 37.7 (34.1-44.9) % MCV 100.8 H (79.4-94.8) fL MCH 33.7 H (25.6-32.2) pg MCHC 33.4 (32.2-35.5) g/dL RDW 13.1 (11.7-14.4) % Plt Count 122 L (182-369) x10^3/uL MPV 10.7 (9.4-12.3) fL Gran % 54.7 (34.0-71.1) % Immature Gran % (Auto) 0.3 (0.001-0.429) % Nucleat RBC Rel Count 0.0 (0.00-0.2) % Eos # (Auto) 0.32 (0.04-0.36) x10^3/uL Immature Gran # (Auto) 0.02 (0.001-0.031) x10^3u/L Absolute Lymphs (auto) 2.04 (1.18-3.74) x10^3/uL Absolute Monos (auto) 0.33 (0.24-0.86) x10^3/uL Absolute Nucleated RBC 0.00 (0.00-0.012) x10^3u/L Lymphocytes % 34.0 (19.3-51.7) % Monocytes % 5.5 (4.7-12.5) % Eosinophils % 5.3 (0.7-5.8) % Basophils % 0.2 (0.1-1.2) % Absolute Granulocytes 3.28 (1.56-6.13) x10^3/uL Basophils # 0.01 (0.01-0.08) x10^3/uL Sodium 140 (135-145) mmol/L Potassium 4.3 (3.5-5.1) mmol/L Chloride 107 (98-107) mmol/L Carbon Dioxide 29 (22-30) mmol/L Anion Gap 8.3 (5-15) MEQ/L BUN 21 H (7-17) mg/dL Creatinine 0.93 (0.52-1.04) mg/dL Estimated GFR 70.4 ML/MIN Glucose 97 (74-106) mg/dL Calcium 8.6 (8.4-10.2) mg/dL Total Bilirubin 0.50 (0.2-1.3) mg/dL AST 23 (14-36) U/L ALT 20 (0-35) U/L Alkaline Phosphatase 67 (38-126) U/L Serum Total Protein 6.4 (6.3-8.2) g/dL Albumin 3.7 (3.5-5.0) g/dL Vitamin B12 544 (239-931) pg/mL Folic Acid 7.81 (2.76 - >20) ng/mL Urine Color (Yellow) Urine Appearance (Clear) Urine pH (4.6-8.0) Ur Specific [place] (1.005-1.030) Urine Protein (Negative) Urine Glucose (UA) (Negative) mg/dL Urine Ketones (Negative) Urine Blood (Negative) Urine Nitrite (Negative) Urine Bilirubin (Negative) Urine Urobilinogen (0.2) mg/dL Ur Leukocyte Esterase (Negative) U Hyaline Cast (Auto) (0-2) /LPF Urine Microscopic RBC (0-5) /HPF Urine Microscopic WBC (0-5) /HPF Ur Epithelial Cells (None Seen) /HPF Urine Bacteria (None Seen) /HPF Urine Culture Reflexed (NO) - Radiology Exams Ordered Rad Exams-Entire Visit: Radiology Procedures Category Date Time Status ABDOMEN AND PELVIS W/0 CONTRAS [CT] Stat Exams 08/19/24 21:13 Completed Discharge Exam General Appearance: no apparent distress Neurologic Exam: alert, oriented x 3, cooperative Eye Exam: PERRL Ears, Nose, Throat Exam: normal ENT inspection Neck Exam: normal inspection Respiratory Exam: normal breath sounds, lungs clear Cardiovascular Exam: regular rate/rhythm, normal heart sounds Gastrointestinal/Abdomen Exam: soft, normal bowel sounds Pelvic Exam: deferred Rectal Exam: deferred Extremity Exam: normal inspection Skin Exam: normal color Final Diagnosis/Problem List - Final Discharge Diagnosis/Problem (1) Appendicitis Current Visit: Yes Status: Resolved Code(s): K37 - UNSPECIFIED APPENDICITIS (2) Low back pain Current Visit: Yes Status: Chronic Code(s): M54.50 - LOW BACK PAIN, UNSPECIFIED (3) UTI (urinary tract infection) Current Visit: Yes Status: Resolved Code(s): N39.0 - URINARY TRACT INFECTION, SITE NOT SPECIFIED - Discharge Disposition: Home, Self-Care Condition: Good Prescriptions: New Amox Tr/[place]ass Clav. 875 mg [Augmentin 875-125 Tablet] 875 mg PO BID 4 Days #8 tablet Hydrocodone/Acetaminophen [Hydrocodone-Acetamin 5-325 mg] 1 tab PO Q6HPRN PRN 7 Days #20 tablet MDD 4 PRN Reason: Pain Follow up with: RAJNI VERGARA MD [ACTIVE STAFF] - 2 weeks RAIN AZEVEDO [employer] [Primary Care Provider] - Call for Appointment
--- NOTE | 2024-08-21 13:01 | OP ---
SURGERY DATE/TIME: 08/20/2024 [id number] PREOPERATIVE DIAGNOSIS: Acute appendicitis. POSTOPERATIVE DIAGNOSIS: Acute appendicitis, nonperforated. PROCEDURE PERFORMED: Laparoscopic appendectomy. SURGEON: Joao Goodwin MD. ANESTHESIA: General. ESTIMATED BLOOD LOSS: Minimal. PATIENT CONDITION: Stable. COMPLICATIONS: None. SPECIMENS: Appendix. INDICATIONS: The patient is a 59-year-old female who presents with a less than 1-day history of abdominal pain migrating to the back and right lower quadrant, mildly tender on exam. CT scan showing a dilated 9 mm appendix with periappendiceal haziness. Discussion was had with the patient that this is most consistent with acute appendicitis. Discussed with her options of antibiotic, nonoperative management versus appendectomy. Risks of infection, bleeding, injury to nearby structure, hernia, negative examination were discussed. She elected to proceed. FINDINGS: Mildly dilated, injected appendix consistent with an early appendicitis. DESCRIPTION OF PROCEDURE: Patient brought to the operating room. General anesthesia induced. Routinely positioned, prepped and draped. Time-out performed. Received a preoperative antibiotic. Veress needle inserted in left upper quadrant. Pneumoperitoneum established. A 12 mm Optiview trocar placed left lower quadrant. She has a lower midline scar. A 5 mm supraumbilical trocar placed. Abdomen is surveyed. Ovaries appear normal. Uterus normal. The small bowel run for at least 2 feet from the ileocecal valve is normal. The appendix is just mildly dilated, mildly injected, with a healthy base. The mesoappendix was taken with LigaSure. Base of the appendix was taken with a white load LUIS MANUEL stapler. That is healthy, hemostatic. Placed in a bag, removed through the 12 trocar site. The 12 trocar site closed with 0 Vicryl interrupted suture passer. Marcaine had been injected in all the port sites. Skin closed with 4-0 Vicryl suture. Steri-Strips and sterile dressing applied. All counts correct. Patient tolerated the procedure well. Plan is for extubation.
== END 2024-08-20 15:30 | disposition home or self-care (01) ==
LOC: ED 20:30 → MED SURG 08-20 00:06
PROVIDERS: ADMIT Internal Medicine; ATTEND Internal Medicine
DX: K37 Unspecified appendicitis (principal); M54.50 Low back pain, unspecified; N39.0 Urinary tract infection, site not specified; Z80.0 Family history of malignant neoplasm of digestive organs
CPT/HCPCS: 36415; 44970; 74176; 80053; 81001; 82607; 82746; 85025; 87086; 96372; 96375; 99285; G0378; Q3014; 99284; J0330; J0694; J1885; J2250; J2270; J2405; J2704; J3010; A9270-GY